=== PATIENT | male | born 1950 | race Caucasian/White ===

== ENCOUNTER 2017-11-21 08:55 | Day surgery (SDC) | payer MEDICAID, MEDICARE ==
[~2017-11-21] VITALS: Ht 180.3 cm; Wt 82.1 kg
[2017-11-21] VITALS (11 sets, daily range): BP systolic 108–133; BP diastolic 65–84
[~2017-11-21 08:55] MED LIST: LIDOcaine 1% 30ml preserv. free vial SQ STA
[2017-11-21] MEDS ORDERED: MESSAGE TO NURSING PO SCH (09:10)
[2017-11-21] MEDS ORDERED: LIDOcaine 1% 30ml preserv. free vial SQ ONE (09:15)
[2017-11-21] MEDS ORDERED: albumin (human) 25% 100 ML IV solution IV PRN (09:25)
[2017-11-21] MEDS ORDERED: normal saline 1000ml 1,000 ML IV PRN (09:25)
[2017-11-21] MEDS ORDERED: ASPI81TA52 PO (09:58)
[2017-11-21] MEDS ORDERED: PANT-47 PO (09:58)
[2017-11-21] MEDS ORDERED: FURO-149 PO (09:58)
[2017-11-21] MEDS ORDERED: MORP15TA PO (09:58)
[2017-11-21] MEDS ORDERED: FOLI0.4T2 PO (09:58)
[2017-11-21] MEDS ORDERED: PROPANOLOL PO (09:58)
[2017-11-21] MEDS ORDERED: ENAL10TA PO (09:58)
[2017-11-21] MEDS ORDERED: METO-395 PO (09:58)
[2017-11-21] MEDS ORDERED: FLO0.4C PO (09:58)
[2017-11-21] MEDS ORDERED: CLOP75TA15 PO (09:58)
[2017-11-21] MEDS ORDERED: ATOR40TA PO (09:58)
== END 2017-11-21 11:05 | disposition home or self-care (01) ==
LOC: SSTAY O 08:55
PROVIDERS: ATTEND Radiology Diagnostic Radiology
DX: C22.0 Liver cell carcinoma (principal); R18.0 Malignant ascites; I10 Essential (primary) hypertension; G47.00 Insomnia, unspecified; F32.9 Major depressive disorder, single episode, unspecified; K22.70 Barrett's esophagus without dysplasia; Z90.49 Acquired absence of other specified parts of digestive tract; Z79.899 Other long term (current) drug therapy; Z79.01 Long term (current) use of anticoagulants; Z86.19 Personal history of other infectious and parasitic diseases; Z86.79 Personal history of other diseases of the circulatory system
CPT/HCPCS: 49083; A6257; J7030; P9047